=== PATIENT | female | born 1975 | race Caucasian/White ===

== ENCOUNTER 2016-12-05 17:10 | Inpatient (IN) ==
[2016-12-05] MEDS ORDERED: Piperacillin/Tazobactam 3.375 GM in D5% in Water (Mini-Bag+) 100 ML IVPB ONE (17:59)
[2016-12-05] MEDS ORDERED: 0.9 % Sodium Chloride 1,000 ML IVC ONE (17:59)
[2016-12-05] MEDS ORDERED: Vancomycin 1,000 MG in D5% in Water 250 ML IVPB ONE (17:59)
[2016-12-05 18:26] LABS: Bilirubin,Urine Negative (Negative); Blood,Urine Negative (Negative); Clarity,Urine Clear (Clear); Color,Urine Yellow (Yellow); Glucose,Urine (UA) Normal (Normal); Ketones,Urine Negative (Negative); Leukocyte Esterase,Urine Negative (Negative); Nitrite,Urine Negative (Negative); Protein,Urine Trace mg/dL (Neg-Trace); Specific Gravity,Urine 1.026 (1.010-1.025); Urobilinogen,Urine Normal (Normal)
--- NOTE | 2016-12-05 18:28 | Emergency Department Note ---
Disposition Clinical Impression: Cellulitis of foot, left, Failure of outpatient treatment Disposition: Admitted As Inpatient Referrals: Mil Ruth MD [Primary Care Provider] - Forms: ED Satisfaction Letter Extremity Problem HPI - General Chief complaint: ED Wound/Laceration Stated complaint: left foot swelling Time Seen by Provider: 12/05/16 17:31 Source: patient Nursing Notes Reviewed: Yes Vital Signs Reviewed: Yes - History of Present Illness HPI Narrative: Patient is a 41-year-old female who presents today with left foot cellulitis times approximately 10 days for worsening symptoms. She states on Tuesday she was at the [facility] for 3 days on IV antibiotics sent home with oral antibiotics clindamycin and bactrim. Then the following day she went [place] was admitted overnight with IV and her buttocks sent home with oral antibiotics. The patient states she is compliant but the redness and swelling are worsening. She has pain with ambulation or palpation dole aching moderate to severe in intensity Pain Scale: 9 - Related Data Allergies Allergy/AdvReac Type Severity Reaction Status Date / Time No Known Allergies Allergy Verified 12/05/16 18:03 All systems ED: reviewed and negative except as stated. Constitutional: Denies: fever, chills Respiratory: Denies: cough Gastrointestinal: Denies: abdominal pain, nausea, vomiting Past Medical History - Past Medical History Source: patient, obtained from family, nursing notes reviewed Medical history: Reports: no medical history Psychiatric history: Reports: no psych history - Social History Smoking Status: Current every day smoker Smokeless Tobacco Status: No Alcohol use: Reports: none Drug use: Reports: none Physical Exam - General General appearance: alert, in no apparent distress - Head Head exam: atraumatic, normocephalic, normal inspection - Eye Eye exam: Present: normal appearance, PERRL, EOMI - ENT ENT exam: normal exam, normal oropharynx, mucous membranes moist - Neck Neck exam: Present: normal inspection, full ROM, trachea midline - Chest Chest inspection: Present: normal inspection, symmetric chest wall rise - Respiratory Respiratory exam: Present: normal lung sounds bilaterally - Cardiovascular Cardiovascular exam: Present: regular rate, normal rhythm, normal heart sounds - Abdominal Exam Abdominal exam: Present: soft, Non-Tender. Absent: tenderness, distention, guarding, rebound, rigidity - Expanded Lower Extremity Exam Foot/toe exam: Present: other (Patients left foot is edematous erythematous with a shallow ulceration on the dorsum of the foot no active purulent drainage. Patient also has multiple neurotic excoriations on her upper and lower extremities.) - Neurological Exam Neurological exam: Present: alert, oriented X3 - Psychiatric Psychiatric exam: Present: normal affect, normal mood - Skin Skin exam: Present: warm, dry, intact, normal color Course Vital Signs Temperature 97.5 F L 12/05/16 17:13 Pulse Rate 83 12/05/16 17:13 Respiratory Rate 16 12/05/16 17:13 Blood Pressure 125/85 12/05/16 17:13 O2 Sat by Pulse Oximetry 99 12/05/16 17:13 Temperature 97.5 F L 12/05/16 17:13 Pulse Rate 74 12/05/16 19:40 Respiratory Rate 18 12/05/16 19:40 Blood Pressure 125/83 12/05/16 19:40 O2 Sat by Pulse Oximetry 100 12/05/16 19:40 Oxygen Delivery Oxygen Delivery Room Air Extremity Problem, Nontraumati - Lab Data Result diagrams: 12/05/16 19:32 12/05/16 19:32 Lab Results 12/05/16 12/05/16 12/05/16 Range/Units 18:14 18:14 19:32 WBC 6.5 (4.3-11.1) K/mcL RBC 3.81 L (3.82-4.97) M/mcL Hgb 11.6 (11.5-15.4) g/dL Hct 34.7 L (35.3-44.9) % MCV 91.1 (83.0-100.0) fL MCH 30.4 (28.0-33.3) pg MCHC 33.4 (31.6-35.5) g/dL RDW 13.2 (11.5-14.5) % Plt Count 273 (140-400) K/mcL MPV 10.1 (9.4-12.4) fL Immature Gran % 0.5 (0-4) % Seg Neutrophils % 56.2 % Lymphocytes % 31.5 % Monocytes % 8.4 % Eosinophils % 2.9 % Basophils % 0.5 % Neutrophils # 3.7 (1.6-8.9) K/mcL Lymphocytes # 2.1 (0.6-4.6) K/mcL Monocytes # 0.6 (0.0-1.3) K/mcL Eosinophils # 0.2 (0.0-0.6) K/mcL Basophils # 0.0 (0.0-0.2) K/mcL ESR (0-15) mm/hr PT (9.4-12.1) Seconds INR APTT (26.0-36.0) Seconds Sodium (136-145) mEq/L Potassium (3.5-4.5) mEq/L Chloride (98-109) mEq/L Carbon Dioxide (19-29) mEq/L BUN (7-20) mg/dL Creatinine (0.57-1.11) mg/dL Est GFR ( Amer) (> 60) Est GFR (Non-Af Amer) (> 60) BUN/Creatinine Ratio (6-26) Glucose (70-99) mg/dL Calculated Osmolality (280-300) Lactic Acid (0.5-2.2) mmol/L Calcium (8.6-10.8) mg/dL Total Bilirubin (0.2-1.2) mg/dL Direct Bilirubin (0.0-0.5) mg/dL Indirect Bilirubin (0.0-1.2) mg/dL AST (5-34) Units/L ALT (0-55) Units/L Alkaline Phosphatase (38-126) Units/L Serum Total Protein (6.0-8.3) g/dL Albumin (3.5-5.0) g/dL Globulin (2.4-3.5) g/dL Albumin/Globulin Ratio (1.1-2.2) Urine Color Yellow (Yellow) Urine Clarity Clear (Clear) Urine pH 7.0 (5.0-8.0) pH Units Ur Specific [place] 1.026 H (1.010-1.025) Urine Protein Trace (Neg-Trace) mg/dL Urine Glucose (UA) Normal (Normal) mg/dL Urine Ketones Negative (Negative) mg/dL Urine Blood Negative (Negative) Urine Nitrite Negative (Negative) Urine Bilirubin Negative (Negative) Urine Urobilinogen Normal (Normal) mg/dL Ur Leukocyte Esterase Negative (Negative) Urine Microscopic WBC 0-3 (0-3) per hpf Ur Squamous Epith Cells Moderate H (None-Few) per lpf Urine Bacteria Few (None-Few) per hpf Ur Culture Indicated? NO (NO) Urine Opiates Screen Positive H (Piqsjr=580) ng/mL Ur Barbiturates Screen Negative (Smwsnf=757) ng/mL Ur Phencyclidine Scrn Negative (Cutoff=25) ng/mL Ur Amphetamines Screen Negative (Vroowg=6184) ng/mL U Benzodiazepines Scrn Positive H (Rvenlg=335) ng/mL Urine Cocaine Screen Negative (Cutoff= 300) ng/mL U Marijuana (THC) Screen Negative (Cutoff = 50) ng/mL 12/05/16 12/05/16 12/05/16 Range/Units 19:32 19:32 19:32 WBC (4.3-11.1) K/mcL RBC (3.82-4.97) M/mcL Hgb (11.5-15.4) g/dL Hct (35.3-44.9) % MCV (83.0-100.0) fL MCH (28.0-33.3) pg MCHC (31.6-35.5) g/dL RDW (11.5-14.5) % Plt Count (140-400) K/mcL MPV (9.4-12.4) fL Immature Gran % (0-4) % Seg Neutrophils % % Lymphocytes % % Monocytes % % Eosinophils % % Basophils % % Neutrophils # (1.6-8.9) K/mcL Lymphocytes # (0.6-4.6) K/mcL Monocytes # (0.0-1.3) K/mcL Eosinophils # (0.0-0.6) K/mcL Basophils # (0.0-0.2) K/mcL ESR (0-15) mm/hr PT 11.8 (9.4-12.1) Seconds INR 1.1 APTT 36.2 H (26.0-36.0) Seconds Sodium 133 L (136-145) mEq/L Potassium 4.0 (3.5-4.5) mEq/L Chloride 102 (98-109) mEq/L Carbon Dioxide 25 (19-29) mEq/L BUN 6 L (7-20) mg/dL Creatinine 0.77 (0.57-1.11) mg/dL Est GFR ( Amer) > 60 (> 60) Est GFR (Non-Af Amer) > 60 (> 60) BUN/Creatinine Ratio 8 (6-26) Glucose 79 (70-99) mg/dL Calculated Osmolality 273 L (280-300) Lactic Acid 1.2 (0.5-2.2) mmol/L Calcium 8.9 (8.6-10.8) mg/dL Total Bilirubin < 0.3 (0.2-1.2) mg/dL Direct Bilirubin 0.1 (0.0-0.5) mg/dL Indirect Bilirubin 0.2 (0.0-1.2) mg/dL AST 26 (5-34) Units/L ALT 23 (0-55) Units/L Alkaline Phosphatase 75 (38-126) Units/L Serum Total Protein 5.9 L (6.0-8.3) g/dL Albumin 2.9 L (3.5-5.0) g/dL Globulin 3.0 (2.4-3.5) g/dL Albumin/Globulin Ratio 1.0 L (1.1-2.2) Urine Color (Yellow) Urine Clarity (Clear) Urine pH (5.0-8.0) pH Units Ur Specific [place] (1.010-1.025) Urine Protein (Neg-Trace) mg/dL Urine Glucose (UA) (Normal) mg/dL Urine Ketones (Negative) mg/dL Urine Blood (Negative) Urine Nitrite (Negative) Urine Bilirubin (Negative) Urine Urobilinogen (Normal) mg/dL Ur Leukocyte Esterase (Negative) Urine Microscopic WBC (0-3) per hpf Ur Squamous Epith Cells (None-Few) per lpf Urine Bacteria (None-Few) per hpf Ur Culture Indicated? (NO) Urine Opiates Screen (Sfyxfv=174) ng/mL Ur Barbiturates Screen (Suhutu=165) ng/mL Ur Phencyclidine Scrn (Cutoff=25) ng/mL Ur Amphetamines Screen (Xfoerc=2373) ng/mL U Benzodiazepines Scrn (Gosibd=429) ng/mL Urine Cocaine Screen (Cutoff= 300) ng/mL U Marijuana (THC) Screen (Cutoff = 50) ng/mL 12/05/16 Range/Units 19:32 WBC (4.3-11.1) K/mcL RBC (3.82-4.97) M/mcL Hgb (11.5-15.4) g/dL Hct (35.3-44.9) % MCV (83.0-100.0) fL MCH (28.0-33.3) pg MCHC (31.6-35.5) g/dL RDW (11.5-14.5) % Plt Count (140-400) K/mcL MPV (9.4-12.4) fL Immature Gran % (0-4) % Seg Neutrophils % % Lymphocytes % % Monocytes % % Eosinophils % % Basophils % % Neutrophils # (1.6-8.9) K/mcL Lymphocytes # (0.6-4.6) K/mcL Monocytes # (0.0-1.3) K/mcL Eosinophils # (0.0-0.6) K/mcL Basophils # (0.0-0.2) K/mcL ESR 13 (0-15) mm/hr PT (9.4-12.1) Seconds INR APTT (26.0-36.0) Seconds Sodium (136-145) mEq/L Potassium (3.5-4.5) mEq/L Chloride (98-109) mEq/L Carbon Dioxide (19-29) mEq/L BUN (7-20) mg/dL Creatinine (0.57-1.11) mg/dL Est GFR ( Amer) (> 60) Est GFR (Non-Af Amer) (> 60) BUN/Creatinine Ratio (6-26) Glucose (70-99) mg/dL Calculated Osmolality (280-300) Lactic Acid (0.5-2.2) mmol/L Calcium (8.6-10.8) mg/dL Total Bilirubin (0.2-1.2) mg/dL Direct Bilirubin (0.0-0.5) mg/dL Indirect Bilirubin (0.0-1.2) mg/dL AST (5-34) Units/L ALT (0-55) Units/L Alkaline Phosphatase (38-126) Units/L Serum Total Protein (6.0-8.3) g/dL Albumin (3.5-5.0) g/dL Globulin (2.4-3.5) g/dL Albumin/Globulin Ratio (1.1-2.2) Urine Color (Yellow) Urine Clarity (Clear) Urine pH (5.0-8.0) pH Units Ur Specific [place] (1.010-1.025) Urine Protein (Neg-Trace) mg/dL Urine Glucose (UA) (Normal) mg/dL Urine Ketones (Negative) mg/dL Urine Blood (Negative) Urine Nitrite (Negative) Urine Bilirubin (Negative) Urine Urobilinogen (Normal) mg/dL Ur Leukocyte Esterase (Negative) Urine Microscopic WBC (0-3) per hpf Ur Squamous Epith Cells (None-Few) per lpf Urine Bacteria (None-Few) per hpf Ur Culture Indicated? (NO) Urine Opiates Screen (Pwvzcq=345) ng/mL Ur Barbiturates Screen (Cnblgt=274) ng/mL Ur Phencyclidine Scrn (Cutoff=25) ng/mL Ur Amphetamines Screen (Gqbbkj=4213) ng/mL U Benzodiazepines Scrn (Fkuurn=380) ng/mL Urine Cocaine Screen (Cutoff= 300) ng/mL U Marijuana (THC) Screen (Cutoff = 50) ng/mL
[2016-12-05 18:37] LABS: Bacteria,Urine Few per hpf (None-Few); Squamous Epithelial Cell,Urine Moderate per lpf (None-Few); WBC,Urine 0-3 per hpf (0-3)
[2016-12-05 19:49] LABS: Basophils % 0.5 %; Eosinophils # 0.2 K/mcL (0.0-0.6); Eosinophils % 2.9 %; Hematocrit 34.7 % (35.3-44.9); Hemoglobin 11.6 g/dL (11.5-15.4); Immature Granulocytes % 0.5 % (0-4); Lymphocytes # 2.1 K/mcL (0.6-4.6); Lymphocytes % 31.5 %; Mean Corpuscular HGB Conc 33.4 g/dL (31.6-35.5); Mean Corpuscular Hemoglobin 30.4 pg (28.0-33.3); Mean Corpuscular Volume 91.1 fL (83.0-100.0); Mean Platelet Volume 10.1 fL (9.4-12.4); Monocytes # 0.6 K/mcL (0.0-1.3); Monocytes % 8.4 %; Neutrophils # 3.7 K/mcL (1.6-8.9); Platelet Count 273 K/mcL (140-400); Red Blood Count 3.81 M/mcL (3.82-4.97); Red Cell Distribution Width 13.2 % (11.5-14.5); Segmented Neutrophils % 56.2 %
[2016-12-05 19:56] LABS: INR 1.1; Prothrombin Time 11.8 Seconds (9.4-12.1)
[2016-12-05 19:59] LABS: Activated Partial Thrombo Time 36.2 Seconds (26.0-36.0)
[2016-12-05 20:04] LABS: Alanine Aminotransferase 23 Units/L (0-55); Albumin 2.9 g/dL (3.5-5.0); Alkaline Phosphatase 75 Units/L (38-126); Aspartate Amino Transferase 26 Units/L (5-34); BUN/Creatinine Ratio 8 (6-26); Bilirubin,Direct 0.1 mg/dL (0.0-0.5); Bilirubin,Indirect 0.2 mg/dL (0.0-1.2); Blood Urea Nitrogen 6 mg/dL (7-20); Calcium 8.9 mg/dL (8.6-10.8); Carbon Dioxide 25 mEq/L (19-29); Chloride 102 mEq/L (98-109); Glucose 79 mg/dL (70-99); Osmolality,Calculated 273 (280-300); Sodium 133 mEq/L (136-145); Total Protein 5.9 g/dL (6.0-8.3); eGFR For African Americans > 60 (> 60); eGFR For Non-African Americans > 60 (> 60)
[2016-12-05 20:07] LABS: Bilirubin,Total < 0.3 mg/dL (0.2-1.2)
[2016-12-05 20:12] LABS: Amphetamine Screen,Urine Negative ng/mL (Cutoff=1000); Barbiturate Screen,Urine Negative ng/mL (Cutoff=200); Benzodiazepines Screen,Urine Positive ng/mL (Cutoff=200); Cannabinoid Screen,Urine Negative ng/mL (Cutoff = 50); Cocaine Screen,Urine Negative ng/mL (Cutoff= 300); Opiate Screen,Urine Positive ng/mL (Cutoff=300); Phencyclidine Screen,Urine Negative ng/mL (Cutoff=25)
--- NOTE | 2016-12-05 20:54 | Internal Med History&Physical ---
Date of Encounter: 12/05/16 Time of Encounter: 20:54 Assessment and Plan (1) Cellulitis of foot, left Current visit: Yes Status: Acute purulent, failed OP clinda/sulfa. Normal WBC count Foot X-ray: No OM. Her skin and axillary lesion may be sequelae of transient bacteremia - Start IV vancomycin / Unasyn (12/05- ) - Tylenol prn - ID consult - MRSA screen - If febrile, check blood cultures - If blood cultures positive or develops new murmur, check TTE r/o IE (2) Failure of outpatient treatment Current visit: Yes Status: Acute as above (3) IVDU (intravenous drug user) Current visit: Yes Status: Acute refer to chemical detox for counseling and rehab Internal Medicine - H&P: HPI Chief complaint: foot pain, infection Admitted From: Emergency Dept Plans for Post Hospital Care: Home History of present illness: Ms. Rubin is a 41 year old female 40W with no chronic medical problems and IVDU of heroin was admitted at 2 different hospitals recently for IV Abx for eft foot cellulitis and was discharged on oral clindamycin / sulfamethoxazole. She has presented to ED due to worsening of left foot redness, pain and swelling despite taking the medicines. She has some skin ulcers on both extremities, as well as small nodules in both axilla, which were drained at OSH. She reports fatigue and somnolence, and is unable to give exact timeline of symptoms and prior treatment. A 10-point ROS is negative other than as mentioned elsewhere in this document. Past Med Surg Social Fam HX - Past Medical History Medical history: no medical history, other (IV heroin use) Psychiatric history: no psych history - Past Surgical History Surgical History: hysterectomy, other (T&A, TL) - Social History Smoking Status: Current every day smoker Smokeless Tobacco Status: No Alcohol use: none Drug use: IV Drug Use (heroin) - Family History Mother Hx Family Cancer: Yes (stage 4 follicular lymphoma in remission) - Additional Family History Additional family history: Mother-follicular lymphoma. Grandmother-unknown cancer Internal Medicine - H&P: Meds 3 Allergy/AdvReac Type Severity Reaction Status Date / Time No Known Allergies Allergy Verified 12/05/16 18:03 All Systems PM: A 10-system review of systems was performed and is negative for pertinent findings except as documented above in the HPI. - Constitutional Vitals: Temp Pulse Resp BP Pulse Ox 97.5 F L 68 18 109/67 97 12/05/16 17:13 12/05/16 20:52 12/05/16 20:52 12/05/16 20:52 12/05/16 20:52 General appearance: Present: cooperative (somnolent), no acute distress - Head Head exam: Present: atraumatic, normal inspection - Eye Eye exam: Present: normal appearance, PERRL, sclera anicteric Pupils: Present: PERRL - ENT ENT exam: Present: mucous membranes dry, normal exam - Neck Neck exam general surgery: Present: supple. Absent: nuchal rigidity - Respiratory Respiratory exam: Present: decreased breath sounds (at bases). Absent: rales, rhonchi, wheezes - Cardiovascular Cardiovascular exam: Present: RRR, +S1, +S2. Absent: diastolic murmur, systolic murmur - GI/Abdominal GI/Abdominal exam: Present: normal bowel sounds, soft. Absent: guarding, rebound, tenderness - Extremities Exam Extremities exam: Absent: calf tenderness - Back Exam Back exam: Absent: CVA tenderness (L), CVA tenderness (R) - Neurological Exam Neurological exam: Present: oriented X3 (somewhat somnolent), no focal deficits. Absent: facial droop - Psychiatric Psychiatric exam: Present: normal affect, normal mood - Skin Additional comments: Left foot dorsal surface has a ruptured blister with some clear discharge. There is surrounding erythema, tenderness, warmth and swelling. Left ankle is slightly swollen as well. There are small papular lesions in various stages of crusting ion both upper extremities. Bilateral axillae has palpable erythematous lesions, which appear to have been lanced in the past. Internal Med - H&P Results - Labs CBC & Chem 7: 12/05/16 19:32 12/05/16 19:32 Labs: Short CBC 12/05/16 Range/Units 19:32 WBC 6.5 (4.3-11.1) K/mcL Hgb 11.6 (11.5-15.4) g/dL Hct 34.7 L (35.3-44.9) % Plt Count 273 (140-400) K/mcL Neutrophils # 3.7 (1.6-8.9) K/mcL BMP 12/05/16 19:32 Sodium 133 L Potassium 4.0 Chloride 102 Carbon Dioxide 25 BUN 6 L Creatinine 0.77 Glucose 79 Calcium 8.9 Liver Function 12/05/16 Range/Units 19:32 Total Bilirubin < 0.3 (0.2-1.2) mg/dL Direct Bilirubin 0.1 (0.0-0.5) mg/dL AST 26 (5-34) Units/L ALT 23 (0-55) Units/L Alkaline Phosphatase 75 (38-126) Units/L Albumin 2.9 L (3.5-5.0) g/dL Urine 12/05/16 Range/Units 18:14 Urine Color Yellow (Yellow) Urine Clarity Clear (Clear) Urine pH 7.0 (5.0-8.0) pH Units Ur Specific [place] 1.026 H (1.010-1.025) Urine Protein Trace (Neg-Trace) mg/dL Urine Glucose (UA) Normal (Normal) mg/dL - Impressions ITS Impressions Foot X-Ray 12/05/16 18:00 IMPRESSION: No radiographic evidence of osteomyelitis. D/ / Lan Jennings MD / Lan Jennings MD Interpreting Provider: Lan Jennings MD
[2016-12-05] MEDS ORDERED: Ondansetron 4 MG/2 ML VIAL IVP PRN (21:55)
[2016-12-05] MEDS ORDERED: Naloxone 0.4 MG/ML INJ IVP PRN (21:55)
[2016-12-05] MEDS ORDERED: Acetaminophen 325 MG TABLET PO PRN (21:55)
[2016-12-05] MEDS ORDERED: Vancomycin 1,000 MG in D5% in Water 250 ML IVPB SCH (23:00)
[2016-12-06] MEDS: Ampicillin/Sulbactam 1,500 MG in 0.9 % Sodium Chloride Mini Bag 100 ML IVPB SCH ×4 (02:25→19:57)
[2016-12-06 03:44] LABS: Basophils % 0.4 %; Eosinophils # 0.2 K/mcL (0.0-0.6); Eosinophils % 3.1 %; Hematocrit 37.2 % (35.3-44.9); Hemoglobin 12.7 g/dL (11.5-15.4); Immature Granulocytes % 0.4 % (0-4); Lymphocytes # 2.2 K/mcL (0.6-4.6); Mean Corpuscular HGB Conc 34.1 g/dL (31.6-35.5); Mean Corpuscular Hemoglobin 30.8 pg (28.0-33.3); Mean Corpuscular Volume 90.3 fL (83.0-100.0); Mean Platelet Volume 10.1 fL (9.4-12.4); Monocytes # 0.5 K/mcL (0.0-1.3); Monocytes % 9.8 %; Neutrophils # 2.3 K/mcL (1.6-8.9); Platelet Count 290 K/mcL (140-400); Red Blood Count 4.12 M/mcL (3.82-4.97); Red Cell Distribution Width 13.2 % (11.5-14.5); Segmented Neutrophils % 44.3 %
[2016-12-06 03:57] LABS: BUN/Creatinine Ratio 8 (6-26); Blood Urea Nitrogen 6 mg/dL (7-20); Carbon Dioxide 22 mEq/L (19-29); Chloride 104 mEq/L (98-109); Glucose 83 mg/dL (70-99); Osmolality,Calculated 273 (280-300); Potassium 4.5 mEq/L (3.5-4.5); Sodium 133 mEq/L (136-145); eGFR For African Americans > 60 (> 60); eGFR For Non-African Americans > 60 (> 60)
[2016-12-06] MEDS: *HR* Enoxaparin 40 MG/0.4 ML SYRINGE SQ SCH (06:42)
[2016-12-06] MEDS ORDERED: Vancomycin 1,000 MG in D5% in Water 250 ML IVPB ONE (07:00)
[2016-12-06] MEDS: Vancomycin 1,000 MG in D5% in Water 250 ML IVPB SCH (13:09)
--- NOTE | 2016-12-06 15:04 | Internal Med Progress Note ---
Date of Encounter: 12/06/16 Time of Encounter: 11:00 - Assessment and plan (1) Cellulitis of foot, left Current Visit: Yes Status: Acute Assessment and plan: Cellulitis of left foot. Failed outpatient antibiotic therapy. Will get CT scan of the foot to look for any underlying abscesses. Continue IV antibiotics. Leg elevation. Moderate risk for complications. Cultures have been negative so far. On anticoagulation with Lovenox (2) IVDU (intravenous drug user) Current Visit: Yes Status: Acute Assessment and plan: Monitor for withdrawal. Treating pain with NSAIDs. - Subjective Interval history: Patient continues to have pain with erythema and swelling in left foot. Has not improved significantly since hospitalization. On IV antibiotics without any issues. No fever or chills reported. - Constitutional Vitals: Temp Pulse Resp BP Pulse Ox 98.3 F 64 15 106/68 96 12/06/16 11:11 12/06/16 11:11 12/06/16 11:11 12/06/16 11:11 12/06/16 11:11 General appearance: Present: A&O X 3, no acute distress, answers questions appropriately - Neck Neck exam general surgery: Present: supple, trachea midline. Absent: lymphadenopathy - Respiratory Respiratory exam: Present: CTAB. Absent: accessory muscle use, rales, rhonchi, wheezes - Cardiovascular Cardiovascular exam: Present: RRR, +S1, +S2. Absent: diastolic murmur, gallop, rubs, systolic murmur - GI/Abdominal GI/Abdominal exam: Present: normal bowel sounds, soft, no peritoneal signs. Absent: distended, tenderness - Extremities Exam Extremities exam: Present: tenderness (Left foot), warm, radial pulses palpable and symmetrical. Absent: calf tenderness, cyanotic, pedal edema Additional comments: Erythema and swelling involving the left foot with open wound on dorsum of left foot. Tender to palpation. Warm to touch. - Neurological Exam Neurological exam: Present: oriented X3, no focal deficits, strengths equal and symetr throughout. Absent: facial droop, speech deficit Internal Medicine: Result - Labs CBC & Chem 7: 12/06/16 03:32 12/06/16 03:32 Labs: Short CBC 12/06/16 Range/Units 03:32 WBC 5.2 (4.3-11.1) K/mcL Hgb 12.7 (11.5-15.4) g/dL Hct 37.2 (35.3-44.9) % Plt Count 290 (140-400) K/mcL Neutrophils # 2.3 (1.6-8.9) K/mcL BMP 12/06/16 03:32 Sodium 133 L Potassium 4.5 Chloride 104 Carbon Dioxide 22 BUN 6 L Creatinine 0.72 Glucose 83 Calcium 9.0 - ABG Interpretation ABG results: PT/INR, D-dimer PT 11.8 Seconds (9.4-12.1) 12/05/16 19:32 - Impressions Impressions Foot CT 12/06/16 10:39 IMPRESSION: Dorsal subcutaneous edema may reflect cellulitis. No defined fluid collection or acute osseous abnormality. D/ / 12/06/2016 12:51:41 Jorge A Murguia MD / magdalena Interpreting Provider: Jorge A Murguia MD Consult Discharge Plan - Plan Referrals: Mil Ruth MD [Primary Care Provider] -
[2016-12-07] MEDS: Vancomycin 1,000 MG in D5% in Water 250 ML IVPB SCH ×2 (00:08→12:09)
[2016-12-07] MEDS: Ampicillin/Sulbactam 1,500 MG in 0.9 % Sodium Chloride Mini Bag 100 ML IVPB SCH ×4 (01:27→20:00)
[2016-12-07] MEDS: *HR* Enoxaparin 40 MG/0.4 ML SYRINGE SQ SCH (06:02)
[2016-12-07] MEDS ORDERED: Ketorolac 30 MG/ML VIAL IVP PRN (08:51)
[2016-12-07] MEDS ORDERED: Nicotine 2 MG GUM BC PRN (09:44)
[2016-12-07] MEDS: *HR* HYDROcodone/Acet 5/325 mg TABLET PO PRN ×2 (10:14→18:32)
--- NOTE | 2016-12-07 12:57 | Internal Med Progress Note ---
Date of Encounter: 12/07/16 Time of Encounter: 09:15 - Assessment and plan (1) Cellulitis of foot, left Current Visit: Yes Status: Acute Assessment and plan: Failed outpatient antibiotic therapy. Continues to improve with IV antibiotics. Continue current antibiotics. Patient will be discharged tomorrow if her swelling and erythema continued to improve. Moderate risk for complications (2) IVDU (intravenous drug user) Current Visit: Yes Status: Acute Assessment and plan: Avoiding intravenous narcotic pain medications. On Toradol for severe pain. No signs of withdrawal at this time. (3) Chest wall pain Current Visit: Yes Status: Acute Assessment and plan: Due to recent chest wall trauma. We will get x-ray to reevaluate. We will treat patient with Toradol for severe pain. May use oral [place] if that does not keep pain under control. - Subjective Interval history: Patient reports that her pain in the left foot is better and swelling and erythema also improving. She is of chest pain related to broken ribs/sternal which she says she sustained 2 weeks back. She is asking for something stronger for pain control saying that they not treating her pain and she might as well go outside and get drugs for pain relief. No fever or chills. - Constitutional Vitals: Temp Pulse Resp BP Pulse Ox 98.3 F 68 15 129/84 98 12/07/16 10:42 12/07/16 10:42 12/07/16 10:42 12/07/16 10:42 12/07/16 10:42 General appearance: Present: A&O X 3, no acute distress, answers questions appropriately - Neck Neck exam general surgery: Present: supple, trachea midline. Absent: lymphadenopathy - Respiratory Respiratory exam: Present: chest wall tenderness, CTAB. Absent: accessory muscle use, rales, rhonchi, wheezes - Cardiovascular Cardiovascular exam: Present: RRR, +S1, +S2. Absent: diastolic murmur, gallop, rubs, systolic murmur - GI/Abdominal GI/Abdominal exam: Present: normal bowel sounds, soft, no peritoneal signs. Absent: distended, tenderness - Extremities Exam Extremities exam: Present: warm, radial pulses palpable and symmetrical. Absent : calf tenderness, cyanotic, pedal edema Additional comments: Left foot erythema and swelling much improved but still significant. Less tender to palpation. Open wound appears clean. No discharge noted. Internal Medicine: Result - Labs CBC & Chem 7: 12/06/16 03:32 12/06/16 03:32 - ABG Interpretation ABG results: PT/INR, D-dimer PT 11.8 Seconds (9.4-12.1) 12/05/16 19:32 - Impressions Impressions Foot CT 12/06/16 10:39 IMPRESSION: Dorsal subcutaneous edema may reflect cellulitis. No defined fluid collection or acute osseous abnormality. D/ / 12/06/2016 12:51:41 Jorge A Murguia MD / magdalena Interpreting Provider: Jorge A Murguia MD Consult Discharge Plan - Plan Referrals: Mil Ruth MD [Primary Care Provider] -
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
[2016-12-07] MEDS: diazePAM 5 MG TABLET PO PRN ×2 (15:29→20:17)
[2016-12-08] MEDS ORDERED: Vancomycin 1,250 MG in D5% in Water 250 ML IVPB SCH (01:00)
[2016-12-08] MEDS: *HR* HYDROcodone/Acet 5/325 mg TABLET PO PRN (02:39)
[2016-12-08] MEDS: Ampicillin/Sulbactam 1,500 MG in 0.9 % Sodium Chloride Mini Bag 100 ML IVPB SCH ×2 (05:56→08:31)
[2016-12-08] MEDS: *HR* Enoxaparin 40 MG/0.4 ML SYRINGE SQ SCH (05:57)
[2016-12-08] MEDS: diazePAM 5 MG TABLET PO PRN (06:47)
[2016-12-08 06:52] VITALS: BP 114/72
--- NOTE | 2016-12-08 08:41 | Discharge Summary ---
Date of Encounter: 12/08/16 Time of Encounter: 07:25 - Discharge Diagnosis (1) Cellulitis of foot, left Priority: Primary Status: Acute Comments: Acute cellulitis of left foot - unknown organism - now improved Patient initially failed outpatient antibiotic therapy, now improved with IV antibiotics Discharge home with PO antibiotics Advised patient to keep left foot area clean and dry, advised to change bandage daily Advised to follow-up with primary care physician, returns symptoms worsen (2) IVDU (intravenous drug user) Priority: Secondary Status: Chronic Comments: Counseled about cessation, information provided for counseling and rehabilitation Not in withdrawal (3) Hepatitis C Priority: Secondary Status: Chronic Comments: Chronic, outpatient follow-up Qualifiers: Viral hepatitis chronicity: chronic Hepatic coma status: without hepatic coma Qualified Code(s): B18.2 - Chronic viral hepatitis C - Discharge Medications Prescriptions: Amoxicillin/Clavulanate [Augmentin] 875 mg PO BIDWM 10 Days Nicotine Patch [Nicoderm] 21 mg TD DAILY #30 patch.[id number] Sulfamethoxazole/Trimeth DS [Bactrim Ds] 1 tab PO BID 10 Days Home Medications: Famotidine [Pepcid] 20 mg PO BID 12/06/16 [History] Gabapentin [Neurontin] 300 mg PO BID 12/06/16 [History] Ibuprofen [Motrin] 800 mg PO Q8HR 12/06/16 [History] diazePAM [Valium] 5 mg PO TID PRN 12/06/16 [History] hydrOXYzine HCl [Hydroxyzine HCl] 25 mg PO QID PRN 12/06/16 [History] Amoxicillin/Clavulanate [Augmentin] 875 mg PO BIDWM 10 Days 12/08/16 [Rx] Nicotine Patch [Nicoderm] 21 mg TD DAILY #30 patch.[email or web address] 12/08/16 [Rx] Sulfamethoxazole/Trimeth DS [Bactrim Ds] 1 tab PO BID 10 Days 12/08/16 [Rx] Allergies/Adverse Reactions: 3 Allergy/AdvReac Type Severity Reaction Status Date / Time No Known Allergies Allergy Verified 12/05/16 18:03 Procedures/tests Complete & Pending: Procedures Performed prior 72 hours Category Date Time Status CT foot LT w con [CT] Stat Cat Scan 12/06/16 10:39 Completed Date of admission: 12/05/16 20:56 Primary care physician: Mil Ruth MD Consults: 12/05/16 22:03 Consult to Infectious Diseases [CONS] Routine Consulting Provider: [facility] [place] Reason for Consult: IVDU, left foot cellulitis, hydradenitis, failed OP clindamycin and sulfamethoxazole, please guide antibiotic therapy and further work up Call Completed: No Anticipated date of discharge: 12/08/16 - Patient Status Disposition: Home, Self-Care Condition: Good Functional capacity at discharge: independent ambulation Overall status at discharge: patient is back to baseline - Discharge Instructions Instructions: Sulfamethoxazole/Trimethoprim (By mouth), Amoxicillin/ Clavulanate Potassium (By mouth), Cellulitis (DC) Follow Up With: Johann Curtis [Other] - 12/14/16 11:00 am Mil Ruth MD [Primary Care Provider] - - Diet and Activity Activity: increase activity as tolerated Diet: advance to your usual diet Hospital course: Ms. Rubin is a 41 year old female with past medical history of IV drug use and tobacco abuse. Patient presented to the ED with complaints of pain and infection. She was apparently recently admitted at 2 different hospitals for IV antibiotics for left foot cellulitis. She was discharged on oral clindamycin and Bactrim. Patient stated that her symptoms worsen. She does have skin ulcers in both extremities and some small nodules in upper extremities. They have been drained at a facility. Patient was unclear about the exact timeline of all symptoms. Medication compliance is an issue. CT of the foot shows dorsal subcutaneous edema likely cellulitis but no abscess. Chest x-ray is normal. ID is going to the patient. Advised to continue vancomycin and Unasyn during patient's stay in the hospital. Blood cultures negative. Patient has a history of chronic hepatitis C. HIV status is pending. Urine drug screen is positive for benzodiazepines and opiates. Patient does have multiple skin lesions of the both upper 40s and lower extremities. Possible IV drug use sites or patient can be picking at these lesions. Patient has been counseled about smoking cessation. Today patient states she feels better and wants to go home. She states she will take her medications at home and will follow up with a primary care physician. Patient is tolerating oral diet well and ambulating well. Her left foot cellulitis has improved. She has been advised to keep the area clean and dry. She has also been advised to change the bandage daily. Patient understood and agreed. No unanswered questions. Patient did not have any other acute events or complications during her stay in the hospital. Patient is being discharged in stable condition. Time spent discussing smoking cessation with patient: 3 to 10 minutes - Time Spent with Patient Total time spent providing and/or coordinating discharge services: Less than 30 minutes - Constitutional Vitals: Temp Pulse Resp BP Pulse Ox 98.0 F 67 15 114/72 99 12/08/16 06:51 12/08/16 06:51 12/08/16 06:51 12/08/16 06:51 12/08/16 06:51 General appearance: Present: A&O X 3, pleasant, no acute distress, answers questions appropriately - Head Head exam: Present: atraumatic - Eye Eye exam: Present: EOMI - ENT ENT exam: Present: mucous membranes moist - Respiratory Respiratory exam: Present: CTAB. Absent: rales, rhonchi, wheezes, tachypnea - Cardiovascular Cardiovascular exam: Present: RRR, +S1, +S2 - GI/Abdominal GI/Abdominal exam: Present: soft. Absent: distended, firm, guarding, tenderness - Extremities Exam Extremities exam: Present: radial pulses palpable and symmetrical. Absent: cyanotic, pedal edema Additional comments: Left foot cellulitis is now improved - Neurological Exam Neurological exam: Present: alert, oriented X3, no focal deficits. Absent: facial droop, speech deficit
[2016-12-08] MEDS ORDERED: Aminoglycoside Consult 1 EACH MC ONE (09:21)
== END 2016-12-08 09:22 | disposition home or self-care (01) | DRG 383 ==
LOC: EMEROO 17:10 → 3ANU 20:56 → SUATTDRO 20:56 → 3ANU 21:49
PROVIDERS: ADMIT Internal Medicine; ATTEND Internal Medicine